=== PATIENT | female | born 1935 | race Caucasian/White ===

== ENCOUNTER 2016-07-16 05:40 | Inpatient (IN) | payer OTHER ==
[2016-07-16] VITALS (8 sets, daily range): BP systolic 128–151; BP diastolic 66–74; PULSE 78–89; RESP 16–20; Ht 152.4 cm; Wt 84.8 kg
[~2016-07-16] VITALS: Ht 152.4 cm; Wt 84.8 kg
[~2016-07-16 05:40] MED LIST: AMLO2.5T78 PO; ATEN50TA PO; BENA20TA48 PO; METF500T4 PO
[2016-07-16] MEDS ORDERED: LORAZEPAM 0.5 MG TAB PO PRN (11:30)
[2016-07-16] MEDS ORDERED: GLUCOSE GEL 15 GRAM TUBE PO PRN ×2 (11:30)
[2016-07-16] MEDS ORDERED: GLUCAGON 1 MG INJ IM PRN (11:30)
[2016-07-16] MEDS ORDERED: DOCUSATE SODIUM 100 MG CAP PO PRN (11:30)
[2016-07-16] MEDS ORDERED: ACETAMINOPHEN 325 MG TAB PO PRN (11:30)
[2016-07-16] MEDS ORDERED: BISACODYL (EC) 5 MG TAB PO PRN (11:30)
[2016-07-16] MEDS ORDERED: NITROGLYCERIN (SL) 0.4 MG TAB SL PRN (11:30)
[2016-07-16] MEDS ORDERED: DEXTROSE 50% 50 ML SYRINGE IV PRN ×2 (11:30)
[2016-07-16] MEDS ORDERED: ONDANSETRON 4 MG INJ IV PRN (11:30)
[2016-07-16] MEDS ORDERED: ALBUTEROL/IPRATROPIUM (NEB) 3 ML AMP HHN PRN (11:30)
[2016-07-16] MEDS ORDERED: GLUCOSE GEL 15 GRAM TUBE BUCCAL PRN (11:30)
[2016-07-16] MEDS ORDERED: NACL 0.9% 3 ML SYG IV SCH (11:30)
--- NOTE | 2016-07-16 12:17 | HP ---
DATE OF ADMISSION: 07/16/2016 CONSULTANTS: None. CHIEF COMPLAINT: Generalized weakness and shortness of breath. HISTORY OF PRESENT ILLNESS: This is an 81-year-old female with a past medical history of hypertensi on, diabetes mellitus, uterine cancer status post radiation therapy last week, who has been complain ing of having generalized weakness, cough and congestion for the past 4 days, with exacerbation of w eakness and having shortness of breath. The patient was taken to urgent care last night and she was treated with a breathing treatment, although her symptoms did not improve; therefore she was taken t o [facility] where her WBC was found to be 2.6. She was treated with albuterol and Solu- Medrol and transferred to [facility] secondary to insurance purposes. According t o the ER doctor at [place], the patient was stable for transfer. At this time the patient contin ues to complain of having shortness of breath, wheezing and generalized weakness. PAST MEDICAL AND SURGICAL HISTORY: 1. Bronchitis. 2. History of uterine cancer. 3. 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 4. Diabetes mellitus type 2. 5. Hard of hearing. 6. Chronic constipation. 7. Frequency of urination. 8. Back pain. 9. Cataracts. 10. Osteoporosis. PAST SURGICAL HISTORY: 1. Bilateral venous stripping. 2. Hysterectomy, bilateral salpingo-oophorectomy, lymph node dissection, omentectomy, umbilical her darnell repair and varicose veins. 7. Status post radiation therapy. MEDICATIONS: 1. Metformin. 2. Benazepril. 3. Atenolol. 4. Naproxen. ALLERGIES: NO KNOWN DRUG ALLERGIES. FAMILY HISTORY: Noncontributory. SOCIAL HISTORY: Negative x3 for smoking, alcohol and illicit drugs. REVIEW OF SYSTEMS: She denies any fevers, chills, weight gain, weight loss, or anorexia. No chest pain, palpitations, edema or orthopnea. Positive for shortness of breath and wheezing. No abdomina l pain, no nausea, vomiting or diarrhea. No headaches, dizziness, lightheadedness. No changes in v isual acuity. Positive for generalized weakness. No neck pain, no restricted range of motion, uppe r and lower extremities. Positive for urinary retention and incontinence. PHYSICAL EXAMINATION: VITAL SIGNS: Temperature 98.7, pulse 90, respirations 20, blood pressure 132/61, oxygen 94% on room air. GENERAL APPEARANCE: The patient is lying in bed comfortably, without any acute distress. She is aw dk, alert and oriented. Body habitus is moderately overweight. EYES AND ENT: Conjunctivae and lids are normal. Pupils are normal. Extraocular is normal. Hearin g is grossly normal. Lips, teeth and gums are normal. Oral mucosa is mildly dry. NECK: Supple. Trachea is midline. No lymphadenopathy. RESPIRATORY: Respiratory effort is normal. Positive wheezing, bilateral upper lung mckeon. No furniture crater ckles, no rales. GENITOURINARY: Deferred. MUSCULOSKELETAL: Upper and lower extremities within normal limit. GASTROINTESTINAL: Abdomen is soft, nontender, not distended. Bowel sounds present. No guarding or rebound. NEUROLOGIC: Cranial nerves II through XII are grossly intact. PSYCHIATRIC: She is awake, alert, oriented. LABORATORY WORK AND IMAGING: EKG showed normal sinus rhythm, no acute ST elevation or depression, n o signs of ischemia. Hemoglobin 11.8, hematocrit 36.1, RBC 4.08, MCV 88, platelets 131. WBC 2.6. Sodium 138, potassium 4.5, chloride 97, bicarbonate 32, BUN 9, creatinine 0.41, glucose 131, calcium 8.3. Anion gap 9, GFR greater than 60. ASSESSMENT AND PLAN: 1. Asthma exacerbation. The patient has been placed on prednisone, breathing treatments, oxygen. Also started the patient on prophylaxis and antibiotics via Rocephin and azithromycin secondary to h er history of neutropenia. 2. Neutropenia. This is likely secondary to history of radiation therapy. 3. Essential hypertension. Well controlled on medical management. 4. Diabetes mellitus. Continue Metformin. The patient low carb diet. 5. History of uterine cancer status post hysterectomy, status post radiation therapy. [facility] as an outpatient. 6. Osteoarthritis. Continue pain medication as needed. 7. Deep venous thrombosis prophylaxis. We will start the patient on Lovenox. 8. Gastrointestinal prophylaxis. On a PPI. Dictated By: HERMINIA GARCIA MD PN/NTS Conf#: [id number] DID#: [id number]
[2016-07-16] MEDS ORDERED: AZITHROMYCIN 250 MG TAB PO ONE (13:00)
[2016-07-16] MEDS: CEFTRIAXONE 1 GM/50 ML (PMX) 50 ML IVPB SCH (14:53)
[2016-07-16] MEDS: INSULIN ASPART [NOVOLOG] 3 ML PEN SC SCH ×2 (18:51→21:33)
[2016-07-16] MEDS: metFORMIN 500 MG TAB PO SCH (21:29)
[2016-07-16] MEDS: predniSONE 20 MG TAB PO SCH (21:29)
[2016-07-17] VITALS (12 sets, daily range): BP systolic 140–158; BP diastolic 64–84; PULSE 56–86; RESP 16–18
[2016-07-17] MEDS: ACCU-CHEK XX SCH (02:00)
[2016-07-17] MEDS: PANTOPRAZOLE (EC) 40 MG TAB PO SCH (06:44)
[2016-07-17] MEDS: INSULIN ASPART [NOVOLOG] 3 ML PEN SC SCH ×4 (08:00→21:00)
[2016-07-17 08:10] LABS: ADD SCAN DIFF NO
[2016-07-17 08:25] LABS: ABNORMAL IP MESSAGE 1; HEMATOCRIT 37.4 % (37.0-47.0); HEMOGLOBIN 11.3 g/dl (12.0-16.0); MEAN CORPUSCULAR HEMOGLOBIN 28.2 pg (29.0-33.0); MEAN CORPUSCULAR HGB CONC 30.2 g/dl (32.0-37.0); MEAN CORPUSCULAR VOLUME 93.3 fl (82.0-101.0); MEAN PLATELET VOLUME 10.8 fl (7.4-10.4); PLATELET COUNT 158 10^3/UL (140-415); RED BLOOD COUNT 4.01 10^6/ul (4.20-5.40); RED CELL DISTRIBUTION WIDTH 16.1 % (11.5-14.5); WHITE BLOOD COUNT 3.4 10^3/ul (4.8-10.8)
[2016-07-17 08:35] LABS: POTASSIUM 4.2 mmol/L (3.5-5.1)
[2016-07-17 08:38] LABS: CREATININE 0.39 mg/dl (0.44-1.00)
[2016-07-17 08:43] LABS: IRON 39 ug/dl (35-150)
[2016-07-17 08:54] LABS: TOTAL IRON BINDING CAPACITY 397 ug/dl (241-421)
[2016-07-17] MEDS ORDERED: BENAZEPRIL 20 MG TAB PO SCH (09:00)
[2016-07-17 09:03] LABS: THYROID STIMULATING HORMONE 0.862 MIU/L (0.465-4.680)
[2016-07-17 09:08] LABS: FERRITIN 38.4 ng/ml (11.1-264.0)
[2016-07-17] MEDS: ATENOLOL 50 MG TAB PO SCH (09:49)
[2016-07-17] MEDS: metFORMIN 500 MG TAB PO SCH ×2 (09:49→21:06)
[2016-07-17] MEDS: predniSONE 20 MG TAB PO SCH ×2 (09:50→21:06)
[2016-07-17] MEDS: AZITHROMYCIN 250 MG TAB PO SCH (09:50)
[2016-07-17] MEDS: AMLODIPINE 5 MG TAB PO SCH (09:50)
[2016-07-17] MEDS: ENOXAPARIN 30 MG/0.3 ML SYG SC SCH (09:51)
[2016-07-17 10:22] LABS: LYMPHOCYTES # 0.3 10^3/ul (0.8-2.9); MONOCYTE # 0.2 10^3/ul (0.3-0.9); NEUTROPHIL # 2.4 10^3/ul (1.6-7.5)
[2016-07-17] MEDS: CEFTRIAXONE 1 GM/50 ML (PMX) 50 ML IVPB SCH (12:59)
[2016-07-17] MEDS ORDERED: CEPASTAT LOZENGE MT PRN (14:00)
--- NOTE | 2016-07-17 14:00 | PN ---
Date/Time of Note Date/Time of Note DATE: 07/17/16 TIME: 13:56 Assessment/Plan VTE Prophylaxis VTE Prophylaxis Intervention: LMWH Lines/Catheters IV [facility]from [facility] Saline Lock Assessment/Plan Chief Complaint/Hosp Course ASSESSMENT AND PLAN: 81F with: 1. Asthma exacerbation - slowly improving - continue prednisone, breathing treatments scheduled, oxygen, antibiotics via Rocephin and azithromycin secondary to her history of neutropenia. - add cough suppressants 2. Neutropenia. This is likely secondary to history of radiation therapy. - monitor 3. Essential hypertension. Well controlled on medical management. 4. Diabetes mellitus - A1c = 6.5 - Continue Metformin, ISS, low carb diet. 5. History of uterine cancer status post hysterectomy, status post radiation therapy. - Follow up with radiation oncology as an outpatient. 6. Osteoarthritis. Continue pain medication as needed. 7. Deep venous thrombosis prophylaxis - Lovenox. 8. Gastrointestinal prophylaxis - PPI. Problems: Subjective 24 Hr Interval Summary Free Text/Dictation Pt still with cough, no fevers. Asking for medicine to "bring up the phlem". Exam/Review of Systems Vital Signs Vitals Vital Signs Date Time Temp Pulse Resp B/P Pulse Ox O2 Delivery O2 Flow Rate FiO2 07/17/16 12:34 97.9 80 18 140/84 97 07/16/16 21:00 Nasal Cannula 2.0 Intake and Output 07/16/16 07/16/16 07/17/16 15:00 23:00 07:00 Intake Total 960 ml Output Total 1400 ml Balance -440 ml Exam GENERAL APPEARANCE: The patient issitting in chair, awake, alert and oriented. Body habitus is moderately overweight. EYES AND ENT: Conjunctivae and lids are normal. Pupils are normal. Extraocular is normal. Hearing is grossly normal. Lips, teeth and gums are normal. Oral mucosa is mildly dry. NECK: Supple. Trachea is midline. No lymphadenopathy. RESPIRATORY: Respiratory effort is normal. Positive wheezing R>L, bilateral upper lung mckeon. No crackles, no rales. MUSCULOSKELETAL: Upper and lower extremities within normal limit. GASTROINTESTINAL: Abdomen is soft, nontender, not distended. Bowel sounds present. No guarding or rebound. NEUROLOGIC: Cranial nerves II through XII are grossly intact. PSYCHIATRIC: She is awake, alert, oriented. Results Result Diagram: 07/17/16 0730 07/17/16 0730 Results 24 hrs Laboratory Tests Test 07/16/16 16:48 07/16/16 20:53 07/17/16 07:30 07/17/16 08:03 Bedside Glucose 174 207 130 White Blood Count 3.4 L Red Blood Count 4.01 L Hemoglobin 11.3 L Hematocrit 37.4 Mean Corpuscular Volume 93.3 Mean Corpuscular Hemoglobin 28.2 L Mean Corpuscular Hemoglobin Concent 30.2 L Red Cell Distribution Width 16.1 H Platelet Count 158 Mean Platelet Volume 10.8 H Neutrophils % 72.0 Band Neutrophils % 14.0 H Lymphocytes % 9.0 L Monocytes % 5.0 Neutrophils # 2.4 Lymphocytes # 0.3 L Monocytes # 0.2 L Sodium Level 138 Potassium Level 4.2 Chloride Level 98 Carbon Dioxide Level 37 H Anion Gap 7 L Blood Urea Nitrogen 14 Creatinine 0.39 L Glucose Level 138 Hemoglobin A1c 6.5 H Calcium Level 8.0 L Magnesium Level 2.0 Iron Level 39 Total Iron Binding Capacity 397 Percent Iron Saturation 10 L Ferritin 38.4 Thyroid Stimulating Hormone (TSH) 0.862 Test 07/17/16 12:03 Bedside Glucose 148 Medications Medications Current Medications Prednisone (Prednisone) 20 mg BID PO Last administered on 07/17/16 09:50; Admin Dose 20 MG; Start 07/16/16 at 21:00 Lorazepam (Ativan) 0.5 mg Q8H PRN PO ANXIETY; Start 07/16/16 at 11:30 Ondansetron HCl (Zofran Inj) 4 mg Q6H PRN IV NAUSEA AND/OR VOMITING; Start at 11:30 Nitroglycerin (Nitroglycerin (Sl Tab) 0.4 Mg) 1 tab Q5M PRN SL CHEST PAIN; Start 07/16/16 at 11:30 Acetaminophen (Tylenol Tab) 650 mg Q6H PRN PO PAIN LEVEL 1-3 OR FEVER; Start at 11:30 Docusate Sodium (Colace) 100 mg Q12H PRN PO CONSTIPATION; Start 07/16/16 at 11: 30 Bisacodyl (Dulcolax) 5 mg DAILY PRN PO CONSTIPATION; Start 07/16/16 at 11:30 Pantoprazole (Protonix Tab) 40 mg DAILY@06 PO Last administered on 07/17/16 06 :44; Admin Dose 40 MG; Start 07/17/16 at 06:00 Enoxaparin Sodium (Lovenox) 30 mg DAILY SC Last administered on 07/17/16 09:51 ; Admin Dose 30 MG; Start 07/17/16 at 09:00 Amlodipine Besylate (Norvasc) 5 mg DAILY PO Last administered on 07/17/16 09: 50; Admin Dose 5 MG; Start 07/17/16 at 09:00 Atenolol (Tenormin) 50 mg DAILY PO Last administered on 07/17/16 09:49; Admin Dose 50 MG; Start 07/17/16 at 09:00 Benazepril HCl (Lotensin) 20 mg DAILY PO Last administered on 07/17/16 09:50; Admin Dose 20 MG; Start 07/17/16 at 09:00; Status Future Hold Metformin HCl (Glucophage) 500 mg BID PO Last administered on 07/17/16 09:49; Admin Dose 500 MG; Start 07/16/16 at 21:00 Miscellaneous Information 1 ea NOTE XX ; Start 07/16/16 at 11:30 Glucose (Glutose) 15 gm Q15M PRN PO DECREASED GLUCOSE; Start 07/16/16 at 11:30 Glucose (Glutose) 22.5 gm Q15M PRN PO DECREASED GLUCOSE; Start 07/16/16 at 11: 30 Dextrose (D50w Syringe) 25 ml Q15M PRN IV DECREASED GLUCOSE; Start 07/16/16 at 11:30 Dextrose (D50w Syringe) 50 ml Q15M PRN IV DECREASED GLUCOSE; Start 07/16/16 at 11:30 Glucagon (Glucagen) 1 mg Q15M PRN IM DECREASED GLUCOSE; Start 07/16/16 at 11:30 Glucose 15 gm 15 gm Q15M PRN BUCCAL DECREASED GLUCOSE; Start 07/16/16 at 11:30 Ceftriaxone Sodium (Rocephin) 50 ml @ 100 mls/hr Q24H IVPB Last administered on 07/17/16 12:59; Admin Dose 100 MLS/HR; Start 07/16/16 at 13:00 Azithromycin (Zithromax) 250 mg DAILY PO Last administered on 07/17/16 09:50; Admin Dose 250 MG; Start 07/17/16 at 09:00 Diagnostic Test (Pha) (Accu-Chek) 1 ea 02 XX ; Start 07/17/16 at 02:00 Phenol (Cepastat Lozenge) 1 lozenge Q1H PRN MT COUGH; Start 07/17/16 at 14:00; Status SULLY RODRIGUEZ Jul 17, 2016 14:00
--- NOTE | 2016-07-17 14:13 | RADRPT ---
Vent Rate: 75 bpm RR Interval: 0 msec MA Interval: 150 msec QRS Duration: 74 msec QT Interval: 376 msec QTC Interval: 419 msec P-R-T [place]: 33 - 25 - 59 degrees Sinus rhythm with marked sinus arrhythmia Anteroseptal infarct , age undetermined Abnormal ECG Electronically Signed By: Esa Cabrera [id number]
[2016-07-17] MEDS: GUAIFENESIN 20 MG/ML 5ML CUP PO PRN (16:35)
[2016-07-17] MEDS: ALBUTEROL/IPRATROPIUM (NEB) 3 ML AMP HHN SCH ×2 (16:41→22:05)
[2016-07-18] VITALS (11 sets, daily range): BP systolic 136–164; BP diastolic 69–79; PULSE 74–92; RESP 16–19
[2016-07-18] MEDS: ALBUTEROL/IPRATROPIUM (NEB) 3 ML AMP HHN SCH ×7 (01:42→21:00)
[2016-07-18] MEDS: ACCU-CHEK XX SCH (02:00)
[2016-07-18] MEDS: PANTOPRAZOLE (EC) 40 MG TAB PO SCH (06:19)
[2016-07-18 07:38] LABS: ADD SCAN DIFF NO
[2016-07-18 07:46] LABS: ABNORMAL IP MESSAGE 1; BASOPHILS % 0.3 % (0.0-2.0); HEMATOCRIT 39.5 % (37.0-47.0); HEMOGLOBIN 12.3 g/dl (12.0-16.0); LYMPHOCYTES # 0.2 10^3/ul (0.8-2.9); LYMPHOCYTES % 5.2 % (15.0-51.0); MEAN CORPUSCULAR HEMOGLOBIN 28.8 pg (29.0-33.0); MEAN CORPUSCULAR HGB CONC 31.1 g/dl (32.0-37.0); MEAN CORPUSCULAR VOLUME 92.5 fl (82.0-101.0); MEAN PLATELET VOLUME 10.4 fl (7.4-10.4); MONOCYTE # 0.3 10^3/ul (0.3-0.9); MONOCYTES % 7.4 % (0.0-11.0); NEUTROPHIL # 3.1 10^3/ul (1.6-7.5); PLATELET COUNT 150 10^3/UL (140-415); RED BLOOD COUNT 4.27 10^6/ul (4.20-5.40); RED CELL DISTRIBUTION WIDTH 16.2 % (11.5-14.5); WHITE BLOOD COUNT 3.7 10^3/ul (4.8-10.8)
[2016-07-18] MEDS: INSULIN ASPART [NOVOLOG] 3 ML PEN SC SCH ×4 (08:00→21:00)
[2016-07-18 08:56] LABS: POTASSIUM 4.2 mmol/L (3.5-5.1)
[2016-07-18 08:59] LABS: CREATININE 0.4 mg/dl (0.44-1.00)
[2016-07-18 09:00] LABS: CALCIUM 8.7 mg/dl (8.4-10.2); MAGNESIUM 1.8 mg/dl (1.7-2.5); PHOSPHORUS 4.2 mg/dl (2.5-4.9)
[2016-07-18] MEDS: metFORMIN 500 MG TAB PO SCH ×2 (09:12→21:50)
[2016-07-18] MEDS: predniSONE 20 MG TAB PO SCH ×2 (09:12→21:50)
[2016-07-18] MEDS: AMLODIPINE 5 MG TAB PO SCH (09:12)
[2016-07-18] MEDS: ATENOLOL 50 MG TAB PO SCH (09:13)
[2016-07-18] MEDS: AZITHROMYCIN 250 MG TAB PO SCH (09:13)
[2016-07-18] MEDS: ENOXAPARIN 30 MG/0.3 ML SYG SC SCH (09:18)
[2016-07-18] MEDS: CEFTRIAXONE 1 GM/50 ML (PMX) 50 ML IVPB SCH (12:58)
--- NOTE | 2016-07-18 13:32 | PN ---
Date/Time of Note Date/Time of Note DATE: 07/18/16 TIME: 13:30 Assessment/Plan VTE Prophylaxis VTE Prophylaxis Intervention: LMWH Lines/Catheters [facility] Saline Lock Assessment/Plan Problems: (1) Acute bronchitis Status: Acute Comment: Patient's on antibiotics and apparently is improving but slowly. I would repeat the chest x-ray and see where we are with this. In addition we can expand up her coverage with lung medication Qualifiers: Bronchitis organism: unspecified organism Qualified Code: J20.9 - Acute bronchitis, unspecified organism (2) Uterine cancer Status: Chronic Comment: She had been receiving radiation therapy for this and had a modest leukopenia. I will recheck her CBC Qualifiers: Malignant neoplasm of uterus location: unspecified site of uterus Qualified Code: C55 - Malignant neoplasm of uterus, unspecified site (3) Diabetes mellitus type 2 in obese Status: Chronic Comment: Adequate control (4) Obesity (BMI 30-39.9) Status: Chronic Comment: Noted (5) Essential hypertension Status: Chronic Comment: Adequate control. Please note he is a more cardioselective beta- amber in this woman with breathing issues Subjective 24 Hr Interval Summary Free Text/Dictation Older female sitting in chair who is not a good historian Respiratory: cough, shortness of breath Cardiovascular: no complaints Gastrointestinal: no complaints Genitourinary: no complaints Exam/Review of Systems Vital Signs Vitals Vital Signs Date Time Temp Pulse Resp B/P Pulse Ox O2 Delivery O2 Flow Rate FiO2 07/18/16 13:11 2.0 07/18/16 13:11 67 20 Nasal Cannula 07/18/16 12:09 99.7 164/79 94 07/18/16 05:30 21 Intake and Output 07/17/16 07/17/16 07/18/16 14:59 22:59 06:59 Intake Total 850 ml 800 ml 250 ml Output Total 1100 ml Balance -250 ml 800 ml 250 ml Exam Constitutional: alert, oriented Respiratory: diminished breath sounds, wheezing Cardiovascular: nl pulses, regular rate and rhythm Gastrointestinal: nl liver, spleen, non-tender, soft Results Result Diagram: 07/18/16 0712 07/18/16 0712 Results 24 hrs Laboratory Tests Test 07/17/16 17:21 07/17/16 20:24 07/18/16 07:12 07/18/16 07:37 Bedside Glucose 143 154 130 White Blood Count 3.7 L Red Blood Count 4.27 Hemoglobin 12.3 Hematocrit 39.5 Mean Corpuscular Volume 92.5 Mean Corpuscular Hemoglobin 28.8 L Mean Corpuscular Hemoglobin Concent 31.1 L Red Cell Distribution Width 16.2 H Platelet Count 150 Mean Platelet Volume 10.4 Neutrophils % 86.0 H Lymphocytes % 5.2 L Monocytes % 7.4 Eosinophils % 0.0 Basophils % 0.3 Nucleated Red Blood Cells % 0.0 Neutrophils # 3.1 Lymphocytes # 0.2 L Monocytes # 0.3 Eosinophils # 0.0 Basophils # 0.0 Nucleated Red Blood Cells # 0.0 Sodium Level 139 Potassium Level 4.2 Chloride Level 99 Carbon Dioxide Level 32 H Anion Gap 12 Blood Urea Nitrogen 14 Creatinine 0.40 L Glucose Level 160 Calcium Level 8.7 Phosphorus Level 4.2 Magnesium Level 1.8 Test 07/18/16 11:49 Bedside Glucose 144 Medications Medications Current Medications Prednisone (Prednisone) 20 mg BID PO Last administered on 07/18/16 09:12; Admin Dose 20 MG; Start 07/16/16 at 21:00 Lorazepam (Ativan) 0.5 mg Q8H PRN PO ANXIETY; Start 07/16/16 at 11:30 Ondansetron HCl (Zofran Inj) 4 mg Q6H PRN IV NAUSEA AND/OR VOMITING; Start at 11:30 Nitroglycerin (Nitroglycerin (Sl Tab) 0.4 Mg) 1 tab Q5M PRN SL CHEST PAIN; Start 07/16/16 at 11:30 Acetaminophen (Tylenol Tab) 650 mg Q6H PRN PO PAIN LEVEL 1-3 OR FEVER; Start at 11:30 Docusate Sodium (Colace) 100 mg Q12H PRN PO CONSTIPATION; Start 07/16/16 at 11: 30 Bisacodyl (Dulcolax) 5 mg DAILY PRN PO CONSTIPATION; Start 07/16/16 at 11:30 Pantoprazole (Protonix Tab) 40 mg DAILY@06 PO Last administered on 07/18/16 06: 19; Admin Dose 40 MG; Start 07/17/16 at 06:00 Enoxaparin Sodium (Lovenox) 30 mg DAILY SC Last administered on 07/18/16 09:18 ; Admin Dose 30 MG; Start 07/17/16 at 09:00 Amlodipine Besylate (Norvasc) 5 mg DAILY PO Last administered on 07/18/16 09:12 ; Admin Dose 5 MG; Start 07/17/16 at 09:00 Atenolol (Tenormin) 50 mg DAILY PO Last administered on 07/18/16 09:13; Admin Dose 50 MG; Start 07/17/16 at 09:00 Benazepril HCl (Lotensin) 20 mg DAILY PO Last administered on 07/17/16 09:50; Admin Dose 20 MG; Start 07/17/16 at 09:00; Status Future Hold Metformin HCl (Glucophage) 500 mg BID PO Last administered on 07/18/16 09:12; Admin Dose 500 MG; Start 07/16/16 at 21:00 Miscellaneous Information 1 ea NOTE XX ; Start 07/16/16 at 11:30 Glucose (Glutose) 15 gm Q15M PRN PO DECREASED GLUCOSE; Start 07/16/16 at 11:30 Glucose (Glutose) 22.5 gm Q15M PRN PO DECREASED GLUCOSE; Start 07/16/16 at 11: 30 Dextrose (D50w Syringe) 25 ml Q15M PRN IV DECREASED GLUCOSE; Start 07/16/16 at 11:30 Dextrose (D50w Syringe) 50 ml Q15M PRN IV DECREASED GLUCOSE; Start 07/16/16 at 11:30 Glucagon (Glucagen) 1 mg Q15M PRN IM DECREASED GLUCOSE; Start 07/16/16 at 11:30 Glucose 15 gm 15 gm Q15M PRN BUCCAL DECREASED GLUCOSE; Start 07/16/16 at 11:30 Ceftriaxone Sodium (Rocephin) 50 ml @ 100 mls/hr Q24H IVPB Last administered on 07/18/16 12:58; Admin Dose 100 MLS/HR; Start 07/16/16 at 13:00 Azithromycin (Zithromax) 250 mg DAILY PO Last administered on 07/18/16 09:13; Admin Dose 250 MG; Start 07/17/16 at 09:00 Diagnostic Test (Pha) (Accu-Chek) 1 ea 02 XX ; Start 07/17/16 at 02:00 Phenol (Cepastat Lozenge) 1 lozenge Q1H PRN MT COUGH; Start 07/17/16 at 14:00 Guaifenesin (Robitussin Liquid Cup) 200 mg Q4H PRN PO COUGH Last administered on 07/17/16t 16:35; Admin Dose 200 MG; Start 07/17/16 at 14:00 SILVINO MORTON MD Jul 18, 2016 13:32
--- NOTE | 2016-07-18 15:14 | RADRPT ---
PROCEDURE: XR Chest. CLINICAL INDICATION: Bronchitis TECHNIQUE: Single frontal chest x-ray. COMPARISON: None. FINDINGS: No acute infiltrate, pleural effusion or pneumothorax is identified. Cardiac silhouette is mildly e nlarged. Right-sided Port-A-Cath tip is in the SVC. The osseous structures are unremarkable. IMPRESSION: 1. Cardiac silhouette is mildly enlarged. 2. No focal acute infiltrate is identified. 3. Right-sided Port-A-Cath is in place. RPTAT: QQ .Ronn Villalobos MD, MD Date Time Electronically viewed and signed by .Ronn Villalobos MD, on 07/18/2016 15:13 .R/
[2016-07-18] MEDS: SALMETEROL/FLUTICASONE 250/50 INHA INH SCH (21:50)
[2016-07-18] MEDS: MONTELUKAST 10 MG TAB PO SCH (21:50)
[2016-07-19] VITALS (10 sets, daily range): BP systolic 131–183; BP diastolic 60–93; PULSE 77–96; RESP 18–20
[2016-07-19] MEDS: ALBUTEROL/IPRATROPIUM (NEB) 3 ML AMP HHN SCH ×6 (01:06→21:13)
[2016-07-19] MEDS: ACCU-CHEK XX SCH (02:00)
[2016-07-19] MEDS: PANTOPRAZOLE (EC) 40 MG TAB PO SCH (07:04)
[2016-07-19 07:44] LABS: ADD SCAN DIFF NO
[2016-07-19 07:48] LABS: ABNORMAL IP MESSAGE 1; HEMATOCRIT 38.5 % (37.0-47.0); HEMOGLOBIN 12.2 g/dl (12.0-16.0); LYMPHOCYTES # 0.2 10^3/ul (0.8-2.9); MEAN CORPUSCULAR HGB CONC 31.7 g/dl (32.0-37.0); MEAN CORPUSCULAR VOLUME 91.4 fl (82.0-101.0); MEAN PLATELET VOLUME 11.2 fl (7.4-10.4); MONOCYTE # 0.3 10^3/ul (0.3-0.9); MONOCYTES % 7.6 % (0.0-11.0); NEUTROPHIL # 3.3 10^3/ul (1.6-7.5); NEUTROPHILS % 85.9 % (39.0-77.0); PLATELET COUNT 150 10^3/UL (140-415); RED BLOOD COUNT 4.21 10^6/ul (4.20-5.40); RED CELL DISTRIBUTION WIDTH 16.2 % (11.5-14.5); WHITE BLOOD COUNT 3.8 10^3/ul (4.8-10.8)
[2016-07-19] MEDS: INSULIN ASPART [NOVOLOG] 3 ML PEN SC SCH ×4 (08:00→21:00)
[2016-07-19 08:27] LABS: POTASSIUM 4.1 mmol/L (3.5-5.1)
[2016-07-19 08:30] LABS: CREATININE 0.4 mg/dl (0.44-1.00)
[2016-07-19 08:31] LABS: CALCIUM 8.4 mg/dl (8.4-10.2)
[2016-07-19] MEDS: SALMETEROL/FLUTICASONE 250/50 INHA INH SCH ×2 (09:42→23:07)
[2016-07-19] MEDS: metFORMIN 500 MG TAB PO SCH ×2 (09:43→21:44)
[2016-07-19] MEDS: predniSONE 20 MG TAB PO SCH ×2 (09:43→21:44)
[2016-07-19] MEDS: AMLODIPINE 5 MG TAB PO SCH (09:43)
[2016-07-19] MEDS: METOPROLOL (XL) 50 MG TAB PO SCH (09:44)
[2016-07-19] MEDS: AZITHROMYCIN 250 MG TAB PO SCH (09:44)
[2016-07-19] MEDS: ENOXAPARIN 30 MG/0.3 ML SYG SC SCH (09:44)
--- NOTE | 2016-07-19 13:25 | PN ---
Date/Time of Note Date/Time of Note DATE: 07/19/16 TIME: 13:24 Assessment/Plan VTE Prophylaxis VTE Prophylaxis Intervention: heparin Lines/Catheters [facility]from [facility] PORT-A-CATH Assessment/Plan Problems: (1) Acute bronchitis Status: Acute Comment: Improving nicely. We will continue antibiotics for 1 more day. She no longer needs telemetry monitoring. Qualifiers: Bronchitis organism: unspecified organism Qualified Code: J20.9 - Acute bronchitis, unspecified organism (2) Obesity (BMI 30-39.9) Status: Chronic Comment: Noted and counseled (3) Diabetes mellitus type 2 in obese Status: Chronic Comment: Well-controlled (4) Essential hypertension Status: Chronic Comment: As per her primary treating oncologist Subjective 24 Hr Interval Summary Free Text/Dictation Patient reports while she still has some cough she is significantly improved. She is now starting to walk in the hallway. Constitutional: no complaints (No fever chills or sweats) Respiratory: cough (Minimal cough), no complaints (No shortness of breath) Cardiovascular: no complaints Gastrointestinal: no complaints Genitourinary: no complaints Exam/Review of Systems Vital Signs Vitals Vital Signs Date Time Temp Pulse Resp B/P Pulse Ox O2 Delivery O2 Flow Rate FiO2 07/19/16 12:16 78 07/19/16 11:52 98.5 18 131/60 95 07/19/16 08:35 Nasal Cannula 2.0 07/18/16 05:30 21 Intake and Output 07/18/16 07/18/16 07/19/16 15:00 23:00 07:00 Intake Total 600 ml 750 ml Balance 600 ml 750 ml Exam Constitutional: alert, oriented Respiratory: clear to auscultation, normal air movement Cardiovascular: nl pulses, regular rate and rhythm Results Result Diagram: 07/19/16 0628 07/19/16 0628 Results 24 hrs Laboratory Tests Test 07/18/16 17:15 07/18/16 20:59 07/19/16 06:28 07/19/16 07:55 Bedside Glucose 132 128 119 White Blood Count 3.8 L Red Blood Count 4.21 Hemoglobin 12.2 Hematocrit 38.5 Mean Corpuscular Volume 91.4 Mean Corpuscular Hemoglobin 29.0 Mean Corpuscular Hemoglobin Concent 31.7 L Red Cell Distribution Width 16.2 H Platelet Count 150 Mean Platelet Volume 11.2 H Neutrophils % 85.9 H Lymphocytes % 6.0 L Monocytes % 7.6 Eosinophils % 0.0 Basophils % 0.0 Nucleated Red Blood Cells % 0.0 Neutrophils # 3.3 Lymphocytes # 0.2 L Monocytes # 0.3 Eosinophils # 0.0 Basophils # 0.0 Nucleated Red Blood Cells # 0.0 Sodium Level 141 Potassium Level 4.1 Chloride Level 98 Carbon Dioxide Level 32 H Anion Gap 15 Blood Urea Nitrogen 18 Creatinine 0.40 L Glucose Level 146 Calcium Level 8.4 Test 07/19/16 12:19 Bedside Glucose 149 Medications Medications Current Medications Prednisone (Prednisone) 20 mg BID PO Last administered on 07/19/16 09:43; Admin Dose 20 MG; Start 07/16/16 at 21:00 Lorazepam (Ativan) 0.5 mg Q8H PRN PO ANXIETY; Start 07/16/16 at 11:30 Ondansetron HCl (Zofran Inj) 4 mg Q6H PRN IV NAUSEA AND/OR VOMITING; Start at 11:30 Nitroglycerin (Nitroglycerin (Sl Tab) 0.4 Mg) 1 tab Q5M PRN SL CHEST PAIN; Start 07/16/16 at 11:30 Acetaminophen (Tylenol Tab) 650 mg Q6H PRN PO PAIN LEVEL 1-3 OR FEVER; Start at 11:30 Docusate Sodium (Colace) 100 mg Q12H PRN PO CONSTIPATION; Start 07/16/16 at 11: 30 Bisacodyl (Dulcolax) 5 mg DAILY PRN PO CONSTIPATION; Start 07/16/16 at 11:30 Pantoprazole (Protonix Tab) 40 mg DAILY@06 PO Last administered on 07/19/16 07: 04; Admin Dose 40 MG; Start 07/17/16 at 06:00 Enoxaparin Sodium (Lovenox) 30 mg DAILY SC Last administered on 07/19/16 09:44 ; Admin Dose 30 MG; Start 07/17/16 at 09:00 Amlodipine Besylate (Norvasc) 5 mg DAILY PO Last administered on 07/19/16 09:43 ; Admin Dose 5 MG; Start 07/17/16 at 09:00 Benazepril HCl (Lotensin) 20 mg DAILY PO Last administered on 07/17/16 09:50; Admin Dose 20 MG; Start 07/17/16 at 09:00; Status Future Hold Metformin HCl (Glucophage) 500 mg BID PO Last administered on 07/19/16 09:43; Admin Dose 500 MG; Start 07/16/16 at 21:00 Miscellaneous Information 1 ea NOTE XX ; Start 07/16/16 at 11:30 Glucose (Glutose) 15 gm Q15M PRN PO DECREASED GLUCOSE; Start 07/16/16 at 11:30 Glucose (Glutose) 22.5 gm Q15M PRN PO DECREASED GLUCOSE; Start 07/16/16 at 11: 30 Dextrose (D50w Syringe) 25 ml Q15M PRN IV DECREASED GLUCOSE; Start 07/16/16 at 11:30 Dextrose (D50w Syringe) 50 ml Q15M PRN IV DECREASED GLUCOSE; Start 07/16/16 at 11:30 Glucagon (Glucagen) 1 mg Q15M PRN IM DECREASED GLUCOSE; Start 07/16/16 at 11:30 Glucose 15 gm 15 gm Q15M PRN BUCCAL DECREASED GLUCOSE; Start 07/16/16 at 11:30 Ceftriaxone Sodium (Rocephin) 50 ml @ 100 mls/hr Q24H IVPB Last administered on 07/18/16 12:58; Admin Dose 100 MLS/HR; Start 07/16/16 at 13:00 Diagnostic Test (Pha) (Accu-Chek) 1 ea 02 XX ; Start 07/17/16 at 02:00 Phenol (Cepastat Lozenge) 1 lozenge Q1H PRN MT COUGH; Start 07/17/16 at 14:00 Guaifenesin (Robitussin Liquid Cup) 200 mg Q4H PRN PO COUGH Last administered on 07/17/16 16:35; Admin Dose 200 MG; Start 07/17/16 at 14:00 Azithromycin (Zithromax) 500 mg DAILY PO Last administered on 07/19/16 09:44; Admin Dose 500 MG; Start 07/19/16 at 09:00; Stop 07/21/16 at 08:59 Metoprolol Succinate (Toprol Xl) 50 mg DAILY PO Last administered on 07/19/16 09:44; Admin Dose 50 MG; Start 07/19/16 at 09:00 Salmeterol Xinafoate/ Fluticasone (Advair 250/50 Diskus) 1 inh BID INH Last administered on 07/19/16 09:42; Admin Dose 1 INH; Start 07/18/16 at 21:00 Montelukast Sodium (Singulair) 10 mg HS PO Last administered on 07/18/16 21:50 ; Admin Dose 10 MG; Start 07/18/16 at 21:00 SILVINO MORTON MD Jul 19, 2016 13:25
[2016-07-19] MEDS: CEFTRIAXONE 1 GM/50 ML (PMX) 50 ML IVPB SCH (14:09)
[2016-07-19] MEDS: MONTELUKAST 10 MG TAB PO SCH (21:43)
[2016-07-20] MEDS: ALBUTEROL/IPRATROPIUM (NEB) 3 ML AMP HHN SCH ×6 (01:09→20:33)
[2016-07-20] MEDS: ACCU-CHEK XX SCH (02:00)
[2016-07-20 05:25] LABS: ADD SCAN DIFF NO
[2016-07-20 05:28] LABS: ABNORMAL IP MESSAGE 1; BASOPHILS % 0.3 % (0.0-2.0); HEMATOCRIT 39.1 % (37.0-47.0); HEMOGLOBIN 12.4 g/dl (12.0-16.0); LYMPHOCYTES # 0.3 10^3/ul (0.8-2.9); LYMPHOCYTES % 9.1 % (15.0-51.0); MEAN CORPUSCULAR HEMOGLOBIN 29.1 pg (29.0-33.0); MEAN CORPUSCULAR HGB CONC 31.7 g/dl (32.0-37.0); MEAN CORPUSCULAR VOLUME 91.8 fl (82.0-101.0); MEAN PLATELET VOLUME 10.5 fl (7.4-10.4); MONOCYTE # 0.2 10^3/ul (0.3-0.9); MONOCYTES % 5.8 % (0.0-11.0); NEUTROPHIL # 2.8 10^3/ul (1.6-7.5); NEUTROPHILS % 83.9 % (39.0-77.0); PLATELET COUNT 130 10^3/UL (140-415); RED BLOOD COUNT 4.26 10^6/ul (4.20-5.40); RED CELL DISTRIBUTION WIDTH 16.1 % (11.5-14.5); WHITE BLOOD COUNT 3.3 10^3/ul (4.8-10.8)
[2016-07-20 05:50] LABS: POTASSIUM 4.5 mmol/L (3.5-5.1)
[2016-07-20 05:53] LABS: CREATININE 0.46 mg/dl (0.44-1.00)
[2016-07-20 05:54] LABS: CALCIUM 8.6 mg/dl (8.4-10.2)
[2016-07-20] MEDS: PANTOPRAZOLE (EC) 40 MG TAB PO SCH (06:38)
[2016-07-20] MEDS: INSULIN ASPART [NOVOLOG] 3 ML PEN SC SCH ×4 (07:50→20:40)
[2016-07-20 08:39] VITALS: BP 130/60; RESP 16
[2016-07-20] MEDS: AZITHROMYCIN 250 MG TAB PO SCH (09:24)
[2016-07-20] MEDS: metFORMIN 500 MG TAB PO SCH ×3 (09:24→19:32)
[2016-07-20] MEDS: predniSONE 20 MG TAB PO SCH ×2 (09:24→20:39)
[2016-07-20] MEDS: METOPROLOL (XL) 50 MG TAB PO SCH (09:25)
[2016-07-20] MEDS: AMLODIPINE 5 MG TAB PO SCH (09:25)
[2016-07-20] MEDS: SALMETEROL/FLUTICASONE 250/50 INHA INH SCH ×2 (09:25→20:39)
[2016-07-20] MEDS: ENOXAPARIN 30 MG/0.3 ML SYG SC SCH (09:26)
--- NOTE | 2016-07-20 10:25 | PN ---
Date/Time of Note Date/Time of Note DATE: 07/20/16 TIME: 10:22 Assessment/Plan VTE Prophylaxis VTE Prophylaxis Intervention: LMWH Lines/Catheters IV C[facility]ter Type (from [facility] PORT A CATH Urinary Cath still in place: No Assessment/Plan Assessment/Plan 1. Asthma exacerbation. still wheezign on IV abx levaquin for acute bronchitis , prednisone 2. acute bronchitis 2. Neutropenia. This is likely secondary to history of radiation therapy. 3. Essential hypertension. Well controlled on medical management. 4. Diabetes mellitus. Continue Metformin. 5. History of uterine cancer status post hysterectomy, status post radiation therapy. Follow up with radiation oncology as an outpatient. 6. Osteoarthritis. Continue pain medication as needed. 7. Deep venous thrombosis prophylaxis. We will start the patient on Lovenox. 8. Gastrointestinal prophylaxis. On a PPI. Subjective 24 Hr Interval Summary Free Text/Dictation pt stable, still wheezing, c/o cough Exam/Review of Systems Vital Signs Vitals Vital Signs Date Time Temp Pulse Resp B/P Pulse Ox O2 Delivery O2 Flow Rate FiO2 07/20/16 08:53 94 2.0 07/20/16 08:49 87 20 Nasal Cannula 07/20/16 08:39 98.1 130/60 07/19/16 21:18 21 Intake and Output 07/19/16 07/19/16 07/20/16 15:00 23:00 07:00 Intake Total 720 ml 400 ml Balance 720 ml 400 ml Exam GENERAL APPEARANCE: The patient is lying in bed comfortably, without any acute distress. She is awake, alert and oriented. Body habitus is moderately overweight. EYES AND ENT: Conjunctivae and lids are normal. Pupils are normal. Extraocular is normal. Hearing is grossly normal. Lips, teeth and gums are normal. Oral mucosa is mildly dry. NECK: Supple. Trachea is midline. No lymphadenopathy. RESPIRATORY: Respiratory effort is normal. Positive wheezing, bilateral upper lung mckeon. No crackles, no rales. GENITOURINARY: Deferred. MUSCULOSKELETAL: Upper and lower extremities within normal limit. GASTROINTESTINAL: Abdomen is soft, nontender, not distended. Bowel sounds present. No guarding or rebound. NEUROLOGIC: Cranial nerves II through XII are grossly intact. PSYCHIATRIC: She is awake, alert, oriented. Constitutional: alert Psych: no complaints Head: normocephalic Eyes: nl conjunctiva Neck: supple Respiratory: crackles/rales, wheezing Cardiovascular: regular rate and rhythm Gastrointestinal: soft Extremities: normal pulses Results Result Diagram: 07/20/16 0430 07/20/16 0430 Results 24 hrs Laboratory Tests Test 07/19/16 12:19 07/19/16 17:03 07/19/16 21:39 07/20/16 04:30 Bedside Glucose 149 150 132 White Blood Count 3.3 L Red Blood Count 4.26 Hemoglobin 12.4 Hematocrit 39.1 Mean Corpuscular Volume 91.8 Mean Corpuscular Hemoglobin 29.1 Mean Corpuscular Hemoglobin Concent 31.7 L Red Cell Distribution Width 16.1 H Platelet Count 130 L Mean Platelet Volume 10.5 H Neutrophils % 83.9 H Lymphocytes % 9.1 L Monocytes % 5.8 Eosinophils % 0.0 Basophils % 0.3 Nucleated Red Blood Cells % 0.0 Neutrophils # 2.8 Lymphocytes # 0.3 L Monocytes # 0.2 L Eosinophils # 0.0 Basophils # 0.0 Nucleated Red Blood Cells # 0.0 Sodium Level 142 Potassium Level 4.5 Chloride Level 99 Carbon Dioxide Level 33 H Anion Gap 15 Blood Urea Nitrogen 17 Creatinine 0.46 Glucose Level 193 Calcium Level 8.6 Test 07/20/16 08:15 Bedside Glucose 139 Medications Medications Current Medications Prednisone (Prednisone) 20 mg BID PO Last administered on 07/20/16t 09:24; Admin Dose 20 MG; Start 07/16/16 at 21:00 Lorazepam (Ativan) 0.5 mg Q8H PRN PO ANXIETY; Start 07/16/16 at 11:30 Ondansetron HCl (Zofran Inj) 4 mg Q6H PRN IV NAUSEA AND/OR VOMITING; Start at 11:30 Nitroglycerin (Nitroglycerin (Sl Tab) 0.4 Mg) 1 tab Q5M PRN SL CHEST PAIN; Start 07/16/16 at 11:30 Acetaminophen (Tylenol Tab) 650 mg Q6H PRN PO PAIN LEVEL 1-3 OR FEVER; Start at 11:30 Docusate Sodium (Colace) 100 mg Q12H PRN PO CONSTIPATION; Start 07/16/16 at 11: 30 Bisacodyl (Dulcolax) 5 mg DAILY PRN PO CONSTIPATION; Start 07/16/16 at 11:30 Pantoprazole (Protonix Tab) 40 mg DAILY@06 PO Last administered on 07/20/16 06: 38; Admin Dose 40 MG; Start 07/17/16 at 06:00 Enoxaparin Sodium (Lovenox) 30 mg DAILY SC Last administered on 07/20/16 09:26 ; Admin Dose 30 MG; Start 07/17/16 at 09:00 Amlodipine Besylate (Norvasc) 5 mg DAILY PO Last administered on 07/20/16 09:25 ; Admin Dose 5 MG; Start 07/17/16 at 09:00 Benazepril HCl (Lotensin) 20 mg DAILY PO Last administered on 07/17/16 09:50; Admin Dose 20 MG; Start 07/17/16 at 09:00; Status Future Hold Metformin HCl (Glucophage) 500 mg BID PO Last administered on 07/20/16 09:24; Admin Dose 500 MG; Start 07/16/16 at 21:00 Miscellaneous Information 1 ea NOTE XX ; Start 07/16/16 at 11:30 Glucose (Glutose) 15 gm Q15M PRN PO DECREASED GLUCOSE; Start 07/16/16 at 11:30 Glucose (Glutose) 22.5 gm Q15M PRN PO DECREASED GLUCOSE; Start 07/16/16 at 11: 30 Dextrose (D50w Syringe) 25 ml Q15M PRN IV DECREASED GLUCOSE; Start 07/16/16 at 11:30 Dextrose (D50w Syringe) 50 ml Q15M PRN IV DECREASED GLUCOSE; Start 07/16/16 at 11:30 Glucagon (Glucagen) 1 mg Q15M PRN IM DECREASED GLUCOSE; Start 07/16/16 at 11:30 Glucose 15 gm 15 gm Q15M PRN BUCCAL DECREASED GLUCOSE; Start 07/16/16 at 11:30 Ceftriaxone Sodium (Rocephin) 50 ml @ 100 mls/hr Q24H IVPB Last administered on 07/19/16 14:09; Admin Dose 100 MLS/HR; Start 07/16/16 at 13:00 Diagnostic Test (Pha) (Accu-Chek) 1 ea 02 XX ; Start 07/17/16 at 02:00 Phenol (Cepastat Lozenge) 1 lozenge Q1H PRN MT COUGH; Start 07/17/16 at 14:00 Guaifenesin (Robitussin Liquid Cup) 200 mg Q4H PRN PO COUGH Last administered on 07/17/16 16:35; Admin Dose 200 MG; Start 07/17/16 at 14:00 Azithromycin (Zithromax) 500 mg DAILY PO Last administered on 07/20/16 09:24; Admin Dose 500 MG; Start 07/19/16 at 09:00; Stop 07/21/16 at 08:59 Metoprolol Succinate (Toprol Xl) 50 mg DAILY PO Last administered on 07/20/16 09:25; Admin Dose 50 MG; Start 07/19/16 at 09:00 Salmeterol Xinafoate/ Fluticasone (Advair 250/50 Diskus) 1 inh BID INH Last administered on 07/20/16 09:25; Admin Dose 1 INH; Start 07/18/16 at 21:00 Montelukast Sodium (Singulair) 10 mg HS PO Last administered on 07/19/16 21:43 ; Admin Dose 10 MG; Start 07/18/16 at 21:00 EFE QUICK MD Jul 20, 2016 10:25
[2016-07-20] MEDS ORDERED: PROMETHAZINE/CODEINE 5ML CUP PO PRN (10:30)
[2016-07-20] MEDS: CEFTRIAXONE 1 GM/50 ML (PMX) 50 ML IVPB SCH (13:25)
[2016-07-20 19:45] VITALS: BP 130/58; RESP 21
[2016-07-20] MEDS: MONTELUKAST 10 MG TAB PO SCH (20:39)
[2016-07-21] MEDS: ALBUTEROL/IPRATROPIUM (NEB) 3 ML AMP HHN SCH ×6 (00:43→21:15)
[2016-07-21] MEDS: ACCU-CHEK XX SCH (01:40)
[2016-07-21] MEDS: PANTOPRAZOLE (EC) 40 MG TAB PO SCH (06:39)
[2016-07-21] MEDS: INSULIN ASPART [NOVOLOG] 3 ML PEN SC SCH ×4 (07:50→21:00)
[2016-07-21 07:59] VITALS: BP 139/79; RESP 18
[2016-07-21] MEDS: metFORMIN 500 MG TAB PO SCH ×2 (10:08→18:36)
[2016-07-21] MEDS: METOPROLOL (XL) 50 MG TAB PO SCH (10:09)
[2016-07-21] MEDS: AMLODIPINE 5 MG TAB PO SCH (10:09)
[2016-07-21] MEDS: predniSONE 20 MG TAB PO SCH ×2 (10:09→21:34)
[2016-07-21] MEDS: ENOXAPARIN 30 MG/0.3 ML SYG SC SCH (10:11)
[2016-07-21] MEDS: SALMETEROL/FLUTICASONE 250/50 INHA INH SCH ×2 (10:11→21:34)
[2016-07-21] MEDS: CEFTRIAXONE 1 GM/50 ML (PMX) 50 ML IVPB SCH (14:35)
--- NOTE | 2016-07-21 17:13 | PN ---
Date/Time of Note Date/Time of Note DATE: 07/21/16 TIME: 17:12 Assessment/Plan VTE Prophylaxis VTE Prophylaxis Intervention: LMWH Lines/Catheters IV Catheter Type (from Nrs): port-a-cath Urinary Cath still in place: No Assessment/Plan Assessment/Plan 1. Asthma exacerbation. still wheezign on IV abx levaquin for acute bronchitis , prednisone 2. acute bronchitis 2. Neutropenia. This is likely secondary to history of radiation therapy. 3. Essential hypertension. Well controlled on medical management. 4. Diabetes mellitus. Continue Metformin. 5. History of uterine cancer status post hysterectomy, status post radiation therapy. Follow up with radiation oncology as an outpatient. 6. Osteoarthritis. Continue pain medication as needed. 7. Deep venous thrombosis prophylaxis. We will start the patient on Lovenox. 8. Gastrointestinal prophylaxis. On a PPI. Subjective 24 Hr Interval Summary Free Text/Dictation pt still wheezing, Bp stable , c/o cough Exam/Review of Systems Vital Signs Vitals Vital Signs Date Time Temp Pulse Resp B/P Pulse Ox O2 Delivery O2 Flow Rate FiO2 07/21/16 16:31 82 18 95 21 07/21/16 14:05 Nasal Cannula 2.0 07/21/16 07:59 98.1 139/79 Intake and Output 07/20/16 07/20/16 07/21/16 15:00 23:00 07:00 Intake Total 1090 ml 400 ml Balance 1090 ml 400 ml Results Result Diagram: 07/20/16 0430 07/20/16 0430 Results 24 hrs Laboratory Tests Test 07/20/16 17:45 07/20/16 20:38 07/21/16 08:34 07/21/16 11:59 Bedside Glucose 148 139 133 117 Test 07/21/16 16:51 Bedside Glucose 171 Medications Medications Current Medications Prednisone (Prednisone) 20 mg BID PO Last administered on 07/21/16t 10:09; Admin Dose 20 MG; Start 07/16/16 at 21:00 Lorazepam (Ativan) 0.5 mg Q8H PRN PO ANXIETY; Start 07/16/16 at 11:30 Ondansetron HCl (Zofran Inj) 4 mg Q6H PRN IV NAUSEA AND/OR VOMITING; Start at 11:30 Nitroglycerin (Nitroglycerin (Sl Tab) 0.4 Mg) 1 tab Q5M PRN SL CHEST PAIN; Start 07/16/16 at 11:30 Acetaminophen (Tylenol Tab) 650 mg Q6H PRN PO PAIN LEVEL 1-3 OR FEVER; Start at 11:30 Docusate Sodium (Colace) 100 mg Q12H PRN PO CONSTIPATION; Start 07/16/16 at 11: 30 Bisacodyl (Dulcolax) 5 mg DAILY PRN PO CONSTIPATION; Start 07/16/16 at 11:30 Pantoprazole (Protonix Tab) 40 mg DAILY@06 PO Last administered on 07/21/16 06: 39; Admin Dose 40 MG; Start 07/17/16 at 06:00 Enoxaparin Sodium (Lovenox) 30 mg DAILY SC Last administered on 07/21/16 10:11 ; Admin Dose 30 MG; Start 07/17/16 at 09:00 Amlodipine Besylate (Norvasc) 5 mg DAILY PO Last administered on 07/21/16 10:09 ; Admin Dose 5 MG; Start 07/17/16 at 09:00 Benazepril HCl (Lotensin) 20 mg DAILY PO Last administered on 07/17/16 09:50; Admin Dose 20 MG; Start 07/17/16 at 09:00; Status Future Hold Miscellaneous Information 1 ea NOTE XX ; Start 07/16/16 at 11:30 Glucose (Glutose) 15 gm Q15M PRN PO DECREASED GLUCOSE; Start 07/16/16 at 11:30 Glucose (Glutose) 22.5 gm Q15M PRN PO DECREASED GLUCOSE; Start 07/16/16 at 11: 30 Dextrose (D50w Syringe) 25 ml Q15M PRN IV DECREASED GLUCOSE; Start 07/16/16 at 11:30 Dextrose (D50w Syringe) 50 ml Q15M PRN IV DECREASED GLUCOSE; Start 07/16/16 at 11:30 Glucagon (Glucagen) 1 mg Q15M PRN IM DECREASED GLUCOSE; Start 07/16/16 at 11:30 Glucose 15 gm 15 gm Q15M PRN BUCCAL DECREASED GLUCOSE; Start 07/16/16 at 11:30 Ceftriaxone Sodium (Rocephin) 50 ml @ 100 mls/hr Q24H IVPB Last administered on 07/21/16 14:35; Admin Dose 100 MLS/HR; Start 07/16/16 at 13:00 Diagnostic Test (Pha) (Accu-Chek) 1 ea 02 XX ; Start 07/17/16 at 02:00 Phenol (Cepastat Lozenge) 1 lozenge Q1H PRN MT COUGH; Start 07/17/16 at 14:00 Guaifenesin (Robitussin Liquid Cup) 200 mg Q4H PRN PO COUGH Last administered on 07/17/16 16:35; Admin Dose 200 MG; Start 07/17/16 at 14:00 Metoprolol Succinate (Toprol Xl) 50 mg DAILY PO Last administered on 07/21/16 10:09; Admin Dose 50 MG; Start 07/19/16 at 09:00 Salmeterol Xinafoate/ Fluticasone (Advair 250/50 Diskus) 1 inh BID INH Last administered on 07/21/16 10:11; Admin Dose 1 INH; Start 07/18/16 at 21:00 Montelukast Sodium (Singulair) 10 mg HS PO Last administered on 07/20/16 20:39 ; Admin Dose 10 MG; Start 07/18/16 at 21:00 Promethazine HCl/ Codeine (Phenergan/ Codeine) 5 ml Q4H PRN PO COUGH; Start 07/20/16 at 10:30 EFE QUICK MD Jul 21, 2016 17:12
[2016-07-21 19:51] VITALS: BP 117/60; RESP 20
[2016-07-21] MEDS: MONTELUKAST 10 MG TAB PO SCH (21:34)
[2016-07-22] MEDS: ALBUTEROL/IPRATROPIUM (NEB) 3 ML AMP HHN SCH ×6 (01:16→20:53)
[2016-07-22] MEDS: ACCU-CHEK XX SCH (02:00)
[2016-07-22] MEDS: PANTOPRAZOLE (EC) 40 MG TAB PO SCH ×2 (06:00→10:38)
[2016-07-22 07:00] VITALS: BP 160/78; RESP 20
[2016-07-22] MEDS: INSULIN ASPART [NOVOLOG] 3 ML PEN SC SCH ×4 (07:50→20:42)
--- NOTE | 2016-07-22 10:35 | PN ---
Date/Time of Note Date/Time of Note DATE: 07/22/16 TIME: 10:33 Assessment/Plan VTE Prophylaxis VTE Prophylaxis Intervention: LMWH Lines/Catheters IV [facility] Type [facility]from [facility] PORT-A-CATH Urinary Cath still in place: No Assessment/Plan Assessment/Plan 1. Asthma exacerbation. still wheezign on IV abx levaquin for acute bronchitis , prednisone 2. acute bronchitis 2. Neutropenia. This is likely secondary to history of radiation therapy. 3. Essential hypertension. Well controlled on medical management. 4. Diabetes mellitus. Continue Metformin. 5. History of uterine cancer status post hysterectomy, status post radiation therapy. Follow up with radiation oncology as an outpatient. 6. Osteoarthritis. Continue pain medication as needed. 7. Deep venous thrombosis prophylaxis. We will start the patient on Lovenox. 8. Gastrointestinal prophylaxis. On a PPI. Subjective 24 Hr Interval Summary Free Text/Dictation pt has been coughing a lot, No fever, Exam/Review of Systems Vital Signs Vitals Vital Signs Date Time Temp Pulse Resp B/P Pulse Ox O2 Delivery O2 Flow Rate FiO2 07/22/16 08:47 79 20 98 Nasal Cannula 3.0 07/22/16 07:00 99.2 160/78 07/22/16 05:25 21 Intake and Output 07/21/16 07/21/16 07/22/16 15:00 23:00 07:00 Intake Total 750 ml 400 ml Balance 750 ml 400 ml Exam Constitutional: alert, oriented Respiratory: diminished breath sounds, wheezing Cardiovascular: nl pulses, regular rate and rhythm Gastrointestinal: nl liver, spleen, non-tender, soft Results Result Diagram: 07/20/16 0430 07/20/16 0430 Results 24 hrs Laboratory Tests Test 07/21/16 11:59 07/21/16 16:51 07/21/16 20:43 07/22/16 07:57 Bedside Glucose 117 171 124 138 Medications Medications Current Medications Prednisone (Prednisone) 20 mg BID PO Last administered on 07/21/16 21:34; Admin Dose 20 MG; Start 07/16/16 at 21:00 Lorazepam (Ativan) 0.5 mg Q8H PRN PO ANXIETY Last administered on 07/22/16 02: 54; Admin Dose 0.5 MG; Start 07/16/16 at 11:30 Ondansetron HCl (Zofran Inj) 4 mg Q6H PRN IV NAUSEA AND/OR VOMITING; Start at 11:30 Nitroglycerin (Nitroglycerin (Sl Tab) 0.4 Mg) 1 tab Q5M PRN SL CHEST PAIN; Start 07/16/16 at 11:30 Acetaminophen (Tylenol Tab) 650 mg Q6H PRN PO PAIN LEVEL 1-3 OR FEVER; Start at 11:30 Docusate Sodium (Colace) 100 mg Q12H PRN PO CONSTIPATION; Start 07/16/16 at 11: 30 Bisacodyl (Dulcolax) 5 mg DAILY PRN PO CONSTIPATION; Start 07/16/16 at 11:30 Pantoprazole (Protonix Tab) 40 mg DAILY@06 PO Last administered on 07/21/16 06: 39; Admin Dose 40 MG; Start 07/17/16 at 06:00 Enoxaparin Sodium (Lovenox) 30 mg DAILY SC Last administered on 07/21/16 10:11 ; Admin Dose 30 MG; Start 07/17/16 at 09:00 Amlodipine Besylate (Norvasc) 5 mg DAILY PO Last administered on 07/21/16 10:09 ; Admin Dose 5 MG; Start 07/17/16 at 09:00 Benazepril HCl (Lotensin) 20 mg DAILY PO Last administered on 07/17/16 09:50; Admin Dose 20 MG; Start 07/17/16 at 09:00; Status Future Hold Miscellaneous Information 1 ea NOTE XX ; Start 07/16/16 at 11:30 Glucose (Glutose) 15 gm Q15M PRN PO DECREASED GLUCOSE; Start 07/16/16 at 11:30 Glucose (Glutose) 22.5 gm Q15M PRN PO DECREASED GLUCOSE; Start 07/16/16 at 11: 30 Dextrose (D50w Syringe) 25 ml Q15M PRN IV DECREASED GLUCOSE; Start 07/16/16 at 11:30 Dextrose (D50w Syringe) 50 ml Q15M PRN IV DECREASED GLUCOSE; Start 07/16/16 at 11:30 Glucagon (Glucagen) 1 mg Q15M PRN IM DECREASED GLUCOSE; Start 07/16/16 at 11:30 Glucose 15 gm 15 gm Q15M PRN BUCCAL DECREASED GLUCOSE; Start 07/16/16 at 11:30 Ceftriaxone Sodium (Rocephin) 50 ml @ 100 mls/hr Q24H IVPB Last administered on 07/21/16 14:35; Admin Dose 100 MLS/HR; Start 07/16/16 at 13:00 Diagnostic Test (Pha) (Accu-Chek) 1 ea 02 XX ; Start 07/17/16 at 02:00 Phenol (Cepastat Lozenge) 1 lozenge Q1H PRN MT COUGH; Start 07/17/16 at 14:00 Guaifenesin (Robitussin Liquid Cup) 200 mg Q4H PRN PO COUGH Last administered on 07/17/16 16:35; Admin Dose 200 MG; Start 07/17/16 at 14:00 Metoprolol Succinate (Toprol Xl) 50 mg DAILY PO Last administered on 07/21/16 10:09; Admin Dose 50 MG; Start 07/19/16 at 09:00 Salmeterol Xinafoate/ Fluticasone (Advair 250/50 Diskus) 1 inh BID INH Last administered on 07/21/16 21:34; Admin Dose 1 INH; Start 07/18/16 at 21:00 Montelukast Sodium (Singulair) 10 mg HS PO Last administered on 07/21/16 21:34 ; Admin Dose 10 MG; Start 07/18/16 at 21:00 Promethazine HCl/ Codeine (Phenergan/ Codeine) 5 ml Q4H PRN PO COUGH; Start 07/20/16 at 10:30 EFE QUICK MD Jul 22, 2016 10:35
--- NOTE | 2016-07-22 10:36 | PDOCDIS ---
Discharge Instructions CONDITION Patient Condition: Good HOME CARE INSTRUCTIONS: Diet Instructions: RegularSpecial Diet: CARDIAC CARB CONTROLLED ACTIVITY: Activity Restrictions: Slowly Increase Activity Rest between Activity Avoid Heavy Housework FOLLOW UP/APPOINTMENTS Appointments Follow up with her own PMD through HMO insurance in 1-2 weeks. Follow up with her cancer physician and have a discussion about radiation bronchitis EFE QUICK MD Jul 22, 2016 10:36
[2016-07-22] MEDS: SALMETEROL/FLUTICASONE 250/50 INHA INH SCH ×2 (10:37→20:40)
[2016-07-22] MEDS: AMLODIPINE 5 MG TAB PO SCH (10:38)
[2016-07-22] MEDS: predniSONE 20 MG TAB PO SCH ×2 (10:39→20:40)
[2016-07-22] MEDS: METOPROLOL (XL) 50 MG TAB PO SCH (10:39)
[2016-07-22] MEDS: metFORMIN 500 MG TAB PO SCH ×2 (10:39→18:37)
[2016-07-22] MEDS: GUAIFENESIN 20 MG/ML 5ML CUP PO PRN ×2 (10:41→18:39)
[2016-07-22] MEDS ORDERED: ALBU8.5H3 INH (10:42)
[2016-07-22] MEDS ORDERED: PANT40TA4 PO (10:42)
[2016-07-22] MEDS ORDERED: LEVO500T10 PO (10:42)
[2016-07-22] MEDS ORDERED: PRED20 PO (10:42)
[2016-07-22] MEDS ORDERED: GUAI120L41 PO (10:42)
[2016-07-22] MEDS ORDERED: ADV25050 INH (10:42)
[2016-07-22] MEDS: ENOXAPARIN 30 MG/0.3 ML SYG SC SCH (10:42)
[2016-07-22] MEDS ORDERED: MONT10TA24 PO (10:42)
[2016-07-22] MEDS: CEFTRIAXONE 1 GM/50 ML (PMX) 50 ML IVPB SCH (13:00)
[2016-07-22 20:20] VITALS: BP 132/62; RESP 20
[2016-07-22] MEDS: MONTELUKAST 10 MG TAB PO SCH (20:40)
[2016-07-23] MEDS: ALBUTEROL/IPRATROPIUM (NEB) 3 ML AMP HHN SCH ×4 (01:38→12:00)
[2016-07-23] MEDS: ACCU-CHEK XX SCH (01:54)
[2016-07-23] MEDS: INSULIN ASPART [NOVOLOG] 3 ML PEN SC SCH ×2 (07:50→11:40)
[2016-07-23 08:13] VITALS: BP 111/68; RESP 18
[2016-07-23] MEDS: metFORMIN 500 MG TAB PO SCH (09:05)
[2016-07-23] MEDS: SALMETEROL/FLUTICASONE 250/50 INHA INH SCH (09:06)
[2016-07-23] MEDS: predniSONE 20 MG TAB PO SCH (09:06)
[2016-07-23] MEDS: AMLODIPINE 5 MG TAB PO SCH (09:06)
[2016-07-23] MEDS: METOPROLOL (XL) 50 MG TAB PO SCH (09:07)
[2016-07-23] MEDS: ENOXAPARIN 30 MG/0.3 ML SYG SC SCH (09:08)
--- NOTE | 2016-07-23 10:59 | PN ---
Date/Time of Note Date/Time of Note DATE: 07/23/16 TIME: 10:56 Assessment/Plan VTE Prophylaxis VTE Prophylaxis Intervention: SCD's, other Lines/Catheters IV Catheter Type (from Nrs): port a cath Urinary Cath still in place: No Assessment/Plan Assessment/Plan 1. Asthma exacerbation. still wheezign on IV abx levaquin for acute bronchitis , prednisone 2. acute bronchitis 2. Neutropenia. This is likely secondary to history of radiation therapy. 3. Essential hypertension. Well controlled on medical management. 4. Diabetes mellitus. Continue Metformin. 5. History of uterine cancer status post hysterectomy, status post radiation therapy. Follow up with radiation oncology as an outpatient. 6. Osteoarthritis. Continue pain medication as needed. 7. Deep venous thrombosis prophylaxis. We will start the patient on Lovenox. 8. Gastrointestinal prophylaxis. On a PPI. Subjective 24 Hr Interval Summary Free Text/Dictation less SOB< BP stable Exam/Review of Systems Vital Signs Vitals Vital Signs Date Time Temp Pulse Resp B/P Pulse Ox O2 Delivery O2 Flow Rate FiO2 07/23/16 09:19 2.0 07/23/16 09:19 83 16 94 Nasal Cannula 07/23/16 08:13 98.4 111/68 07/22/16 20:55 21 Intake and Output 07/22/16 07/22/16 07/23/16 15:00 23:00 07:00 Intake Total 1000 ml 880 ml Balance 1000 ml 880 ml Exam Constitutional: alert, oriented Respiratory: diminished breath sounds, wheezing Cardiovascular: nl pulses, regular rate and rhythm Gastrointestinal: nl liver, spleen, non-tender, soft Results Result Diagram: 07/20/16 0430 07/20/16 0430 Results 24 hrs Laboratory Tests Test 07/22/16 12:18 07/22/16 17:06 07/22/16 20:39 07/23/16 07:59 Bedside Glucose 140 165 123 127 Medications Medications Current Medications Prednisone (Prednisone) 20 mg BID PO Last administered on 07/23/16 09:06; Admin Dose 20 MG; Start 07/16/16 at 21:00 Lorazepam (Ativan) 0.5 mg Q8H PRN PO ANXIETY Last administered on 07/22/16 02: 54; Admin Dose 0.5 MG; Start 07/16/16 at 11:30 Ondansetron HCl (Zofran Inj) 4 mg Q6H PRN IV NAUSEA AND/OR VOMITING; Start at 11:30 Nitroglycerin (Nitroglycerin (Sl Tab) 0.4 Mg) 1 tab Q5M PRN SL CHEST PAIN; Start 07/16/16 at 11:30 Acetaminophen (Tylenol Tab) 650 mg Q6H PRN PO PAIN LEVEL 1-3 OR FEVER; Start at 11:30 Docusate Sodium (Colace) 100 mg Q12H PRN PO CONSTIPATION; Start 07/16/16 at 11: 30 Bisacodyl (Dulcolax) 5 mg DAILY PRN PO CONSTIPATION; Start 07/16/16 at 11:30 Pantoprazole (Protonix Tab) 40 mg DAILY@06 PO Last administered on 07/22/16 10: 38; Admin Dose 40 MG; Start 07/17/16 at 06:00 Enoxaparin Sodium (Lovenox) 30 mg DAILY SC Last administered on 07/23/16 09:08 ; Admin Dose 30 MG; Start 07/17/16 at 09:00 Amlodipine Besylate (Norvasc) 5 mg DAILY PO Last administered on 07/23/16 09:06 ; Admin Dose 5 MG; Start 07/17/16 at 09:00 Benazepril HCl (Lotensin) 20 mg DAILY PO Last administered on 07/17/16 09:50; Admin Dose 20 MG; Start 07/17/16 at 09:00; Status Future Hold Miscellaneous Information 1 ea NOTE XX ; Start 07/16/16 at 11:30 Glucose (Glutose) 15 gm Q15M PRN PO DECREASED GLUCOSE; Start 07/16/16 at 11:30 Glucose (Glutose) 22.5 gm Q15M PRN PO DECREASED GLUCOSE; Start 07/16/16 at 11: 30 Dextrose (D50w Syringe) 25 ml Q15M PRN IV DECREASED GLUCOSE; Start 07/16/16 at 11:30 Dextrose (D50w Syringe) 50 ml Q15M PRN IV DECREASED GLUCOSE; Start 07/16/16 at 11:30 Glucagon (Glucagen) 1 mg Q15M PRN IM DECREASED GLUCOSE; Start 07/16/16 at 11:30 Glucose 15 gm 15 gm Q15M PRN BUCCAL DECREASED GLUCOSE; Start 07/16/16 at 11:30 Ceftriaxone Sodium (Rocephin) 50 ml @ 100 mls/hr Q24H IVPB Last administered on 07/21/16 14:35; Admin Dose 100 MLS/HR; Start 07/16/16 at 13:00 Diagnostic Test (Pha) (Accu-Chek) 1 ea 02 XX ; Start 07/17/16 at 02:00 Phenol (Cepastat Lozenge) 1 lozenge Q1H PRN MT COUGH Last administered on 20:40; Admin Dose 1 LOZENGE; Start 07/17/16 at 14:00 Guaifenesin (Robitussin Liquid Cup) 200 mg Q4H PRN PO COUGH Last administered on 07/22/16 18:39; Admin Dose 200 MG; Start 07/17/16 at 14:00 Metoprolol Succinate (Toprol Xl) 50 mg DAILY PO Last administered on 07/23/16 09:07; Admin Dose 50 MG; Start 07/19/16 at 09:00 Salmeterol Xinafoate/ Fluticasone (Advair 250/50 Diskus) 1 inh BID INH Last administered on 07/23/16 09:06; Admin Dose 1 INH; Start 07/18/16 at 21:00 Montelukast Sodium (Singulair) 10 mg HS PO Last administered on 07/22/16 20:40 ; Admin Dose 10 MG; Start 07/18/16 at 21:00 Promethazine HCl/ Codeine (Phenergan/ Codeine) 5 ml Q4H PRN PO COUGH Last administered on 07/23/16 05:40; Admin Dose 5 ML; Start 07/20/16 at 10:30 EFE QUICK MD Jul 23, 2016 10:59
--- NOTE | 2016-07-23 22:35 | DS ---
DATE OF ADMISSION: 07/16/2016 DATE OF DISCHARGE: 07/23/2016 FINAL DISCHARGE DIAGNOSES: 1. Acute asthma exacerbation. 2. Acute bronchitis. 3. 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 4. Rule out radiation bronchitis. 5. History of hypertension. 6. History of diabetes mellitus. 7. History of uterine cancer status post hysterectomy, status post radiation therapy. 8. Osteoarthritis. CONSULTATIONS DONE DURING THIS HOSPITALIZATION: None. PROCEDURES PERFORMED DURING THIS HOSPITALIZATION: None. HOSPITAL COURSE: This is an 81-year-old female with a past medical history of hypertension, diabete s mellitus, history of uterine cancer; status post hysterectomy and status post radiation therapy, o steoarthritis, who presented with a complaint of shortness of breath. The patient is noted to have acute bronchitis and also acute asthma exacerbation. There was also concern about some radiation br onchitis. The patient was treated with IV Levaquin and also IV Solu-Medrol while being in the [facility]. She continues to have a significant cough and expectoration, for which she was started on a co ugh syrup with codeine. She remained hemodynamically stable, afebrile, WBC count was normal, and sh e got discharged home with prescriptions of Levaquin and tapering dose of prednisone upon discharge. DISPOSITION: To home. DISCHARGE CONDITION: Stable and improved compared to admission. DISCHARGE ACTIVITIES: As tolerated, slowly resume to the normal baseline activity. DISCHARGE DIET: Low-fat, low-sodium diet. DISCHARGE MEDICATIONS: She is given prescriptions of: 1. Guaifenesin codeine phosphate 5 mL p.o. q. 6 hours p.r.n. cough. 2. Levaquin 500 mg p.o. daily x7 days. 3. Singulair 10 mg p.o. at bedtime. 4. Protonix 40 mg p.o. daily. 5. Tapering dose of prednisone 6. Advair inhalations b.i.d. 7. Albuterol p.r.n. shortness of breath. DISCHARGE FOLLOWUP AND INSTRUCTIONS: The patient is to follow up with her own primary care doctor i n 1-2 weeks after discharge. She has been explained about the discharge plan and followup instructi ons. She understood and verbalized understanding. Dictated By: EEF QUICK MD, KP/JOSE Conf#: [id number] DID#: [id number]
== END 2016-07-23 13:30 | disposition home or self-care (01) | DRG 203 ==
LOC: MS4 07:32 → MS1 07-19 16:35
PROVIDERS: ADMIT Internal Medicine; ATTEND Internal Medicine
DX: J45.901 Unspecified asthma with (acute) exacerbation (principal); D70.1 Agranulocytosis secondary to cancer chemotherapy; E11.9 Type 2 diabetes mellitus without complications; I10 Essential (primary) hypertension; M19.90 Unspecified osteoarthritis, unspecified site; Z85.42 Personal history of malignant neoplasm of other parts of uterus; E66.9 Obesity, unspecified; Z68.36 Body mass index [BMI] 36.0-36.9, adult
CPT/HCPCS: 71020; 80048; 82728; 82962; 83036; 83540; 83735; 84100; 84443; 85025; 93005; 94640; 94664; 97162; J0696; J1650; J1815; J7512